=== PATIENT | female | born 2000 | race Caucasian/White ===

== ENCOUNTER 2019-02-12 12:34 | Emergency (ER) | payer BC ==
[~2019-02-12] VITALS: Ht 157.5 cm; Wt 111.4 kg
[2019-02-12 12:40] VITALS: BP 154/76; PULSE 70; TEMP 98.3
== END 2019-02-12 13:30 | disposition home or self-care (01) ==
LOC: COL.ER 12:34
DX: S76.911A Strain of unspecified muscles, fascia and tendons at thigh level, right thigh, initial encounter (principal); X50.0XXA Overexertion from strenuous movement or load, initial encounter; Y93.41 Activity, dancing